=== PATIENT | female | born 1980 | race Caucasian/White ===

== ENCOUNTER → 2021-06-28 18:20 | Outpatient (CLI) | payer BC, SELFPAY ==
[2021-06-28 18:55] LABS: COVID19 -Nasal RAPID Negative (Negative)
== END ==
PROVIDERS: Family Provider Family Medicine; PCP Family Medicine; Referring Provider Nurse Practitioner; Visit Provider Nurse Practitioner
DX: Z20.822 Contact with and (suspected) exposure to COVID-19 (principal); J02.9 Acute pharyngitis, unspecified
CPT/HCPCS: 87635

== ENCOUNTER → 2022-03-06 15:07 | Outpatient (CLI) | payer BC, SELFPAY ==
[2022-03-06 16:08] LABS: COVID19 -Nasal RAPID Negative (Negative)
== END ==
PROVIDERS: Family Provider Family Medicine; PCP Family Medicine; Visit Provider Physician Assistant
DX: Z20.822 Contact with and (suspected) exposure to COVID-19 (principal); J31.2 Chronic pharyngitis
CPT/HCPCS: 87635

== ENCOUNTER → 2023-07-05 15:25 | Outpatient (CLI) | payer OTHER, BC, SELFPAY | PROVIDERS: Family Provider Family Medicine; PCP Family Medicine; Referring Provider Family Medicine; Visit Provider Family Medicine | DX: Z23 Encounter for immunization (principal) | CPT/HCPCS: 90471; 90686 ==

== ENCOUNTER → 2024-02-07 10:17 | Outpatient (CLI) | payer OTHER, BC, SELFPAY ==
--- NOTE | 2024-02-07 10:19 | DI.MG.S_ITS ---
BILATERAL DIGITAL DIAGNOSTIC MAMMOGRAM 3D/2D: 02/07/2024 CLINICAL: Bilateral axilla lumps. Baseline. No prior exams were available for comparison. Both breasts are heterogeneously dense, which may obscure small masses (category c / 51-75% glandular tissue). No significant masses, calcifications, or other findings are seen in either breast. Specifically, no finding to correspond to the patient's left axillary palpable abnormalities. Normal left axillary lymph nodes are partially seen. IMPRESSION: INCOMPLETE: NEEDS ADDITIONAL IMAGING EVALUATION Bilateral mammograms are normal. There are no mammographic abnormalities seen in the left axilla to correspond with the palpable nodularities in the left axilla. Ultrasound is recommended for full evaluation of this area. This was performed immediately following this exam. Based on the Tyrer Cuzick model (a risk assessment model) the patient's lifetime risk is 10.1% and her 10 year risk is 1.7%. According to the ACR, ACS, and NCCN guidelines, an annual breast MRI exam along with mammogram is recommended if the patient's lifetime risk is 20% or greater. This exam was interpreted at Station ID: [id number]. NOTE: For mammograms, a report in lay terms will be sent to the patient. Approximately 15% of breast malignancies will not be visualized mammographically. In the management of a palpable breast mass, a negative mammogram must not discourage biopsy of a clinically suspicious lesion. Electronically Signed By: Olga hutton/:02/07/2024 11:59:51 ACR BI-RADS Category 0: Incomplete [id number]
--- NOTE | 2024-02-07 10:19 | DI.US.S_ITS ---
ULTRASOUND OF LEFT BREAST: 02/07/2024 CLINICAL: Follow up from addtional views. Comparison is made to exam dated: 02/07/2024 mammogram - [facility]. Color flow and real-time ultrasound of the left breast were performed. No significant abnormalities were seen sonographically in the left breast. There are a few normal left axillary lymph nodes with normal cortical thickness and benign fatty zoe. IMPRESSION: NEGATIVE There is no sonographic evidence of malignancy. Normal axillary lymph nodes are present. These may be palpable. A 1 year screening mammogram is recommended. Findings and recommendations were conveyed to the patient at time of exam. This exam was interpreted at Station ID: [id number]. Electronically Signed By: Olga hutton/:02/07/2024 12:01:43 letter sent: Normal Exam Ultrasound BI-RADS: 1 Negative
== END ==
LOC: MAMMO 10:18
PROVIDERS: Family Provider Family Medicine; PCP Family Medicine; Referring Provider Family Medicine; Visit Provider Family Medicine
DX: R92.2 Inconclusive mammogram (principal); N63.0 Unspecified lump in unspecified breast; R92.333 Mammographic heterogeneous density, bilateral breasts
CPT/HCPCS: 76642; 77066; G0279

== ENCOUNTER → 2024-07-03 16:43 | Outpatient (CLI) | payer OTHER, BC, SELFPAY | PROVIDERS: Family Provider Family Medicine; PCP Family Medicine; Referring Provider Internal Medicine; Visit Provider Internal Medicine | DX: Z23 Encounter for immunization (principal) | CPT/HCPCS: 90471; 90656 ==